=== PATIENT | female | born 1940 | race Caucasian/White ===

== ENCOUNTER 2017-07-15 00:14 | Inpatient (IN) | payer OTHER ==
[~2017-07-15] VITALS: Ht 170.2 cm; Wt 98.9 kg
[~2017-07-15 00:14] MED LIST: ASPIRIN81 MG PO; ATENOLOL25 MG PO; LOSARTAN POTASS25 M1; SIMVASTATIN10 M1
[2017-07-15 01:15] LABS: PLATELET COUNT 261 x10^3mcL (130-400); RED CELL DISTRIBUTION WIDTH 13.8 % (11.5-14.5)
[2017-07-15 01:16] LABS: BASOPHIL % 0 % (0-2)
[2017-07-15 01:45] LABS: CALCIUM 9.3 mg/dL (8.5-10.1); CARBON DIOXIDE 30.3 mmol/L (21-32); CHLORIDE SERUM 104 mmol/L (98-107); GLUCOSE SERUM 158 mg/dL (74-106); POTASSIUM SERUM 4.3 mmol/L (3.5-5.1); SODIUM SERUM 141 mmol/L (136-145)
[2017-07-15 01:49] LABS: ALBUMIN 3.8 g/dL (3.4-5.0); ALKALINE PHOSPHATASE 107 U/L (46-116); ALT/SGPT 19 U/L (14-59); AST/SGOT 18 U/L (15-37); BILIRUBIN TOTAL 0.74 mg/dL (0.20-1.00); LIPASE 66 IU/L (73-393); MAGNESIUM 1.9 mg/dL (1.8-2.4)
[2017-07-15 03:31] LABS: microscopic required? YES; urine erythrocyte NEGATIVE (NEGATIVE)
[2017-07-15] MEDS ORDERED: AMLODIPINE BESY10 M2 (04:29)
[2017-07-15 05:12] VITALS: BP 212/103
[2017-07-15 06:38] VITALS: BP 164/83
[2017-07-15 06:58] LABS: CHOLESTEROL/HDL RATIO 3.3; PHOSPHOROUS 3.4 mg/dL (2.5-4.9)
[2017-07-15 07:06] LABS: FREE T4 1.2 ng/dL (0.76-1.46); FREE THYROXINE INDEX 3.8 ug/dL (1.4-4.5); T4(THYROXINE) 11.2 ug/dL (4.7-13.3)
[2017-07-15 07:31] LABS: T3 TOTAL 1.27 ng/mL
[2017-07-15 09:18] VITALS: BP 151/68
[2017-07-15 12:39] LABS: RED CELL DISTRIBUTION WIDTH 14.2 % (11.5-14.5)
[2017-07-15 12:42] LABS: PLATELET COUNT 252 x10^3mcL (130-400)
[2017-07-15 12:43] VITALS: BP 137/60
[2017-07-15 13:52] LABS: MONOCYTE 4 % (0-7); SEGMENTED NEUTROPHILS 84 % (37-75)
[2017-07-15 13:53] LABS: BAND NEUTROPHIL 5 % (0-10); BASOPHIL 0 % (0-2)
[2017-07-15 13:54] LABS: PLATELET MORPHOLOGY LARGE PLATELET SEEN; rbc morphology (normal/abnorm) ABNORMAL (NORMAL); tear drop cell (dacryocyte) 1+
[2017-07-15 16:54] VITALS: BP 123/54
[2017-07-15 17:28] LABS: AMPHETAMINE QUAL UR NONE DETECTED (NEG <=1000)
[2017-07-15 21:29] VITALS: BP 122/47
[2017-07-16 05:29] VITALS: BP 122/53
[2017-07-16 06:11] LABS: BASOPHIL % 0.3 % (0-2); PLATELET COUNT 211 x10^3mcL (130-400); RED CELL DISTRIBUTION WIDTH 14.2 % (11.5-14.5)
[2017-07-16 06:55] LABS: CALCIUM 8.2 mg/dL (8.5-10.1); CARBON DIOXIDE 29.1 mmol/L (21-32); CHLORIDE SERUM 105 mmol/L (98-107); CREATININE SERUM 1.1 mg/dL (0.6-1.0); GLUCOSE SERUM 97 mg/dL (74-106); MAGNESIUM 2.1 mg/dL (1.8-2.4); PHOSPHOROUS 3.4 mg/dL (2.5-4.9); POTASSIUM SERUM 3.4 mmol/L (3.5-5.1); SODIUM SERUM 141 mmol/L (136-145)
[2017-07-16 08:54] VITALS: BP 142/66
[2017-07-16 12:43] VITALS: BP 116/47
[2017-07-16 16:46] VITALS: BP 140/56
[2017-07-16 21:25] VITALS: BP 115/65
[2017-07-17 05:37] VITALS: BP 156/64
[2017-07-17 06:22] LABS: BASOPHIL % 0.2 % (0-2); PLATELET COUNT 220 x10^3mcL (130-400); RED CELL DISTRIBUTION WIDTH 13.6 % (11.5-14.5)
[2017-07-17 06:43] LABS: CALCIUM 8.3 mg/dL (8.5-10.1); CARBON DIOXIDE 27.5 mmol/L (21-32); CHLORIDE SERUM 108 mmol/L (98-107); CREATININE SERUM 0.8 mg/dL (0.6-1.0); GLUCOSE SERUM 112 mg/dL (74-106); MAGNESIUM 1.8 mg/dL (1.8-2.4); PHOSPHOROUS 2.6 mg/dL (2.5-4.9); POTASSIUM SERUM 3.5 mmol/L (3.5-5.1); SODIUM SERUM 143 mmol/L (136-145)
[2017-07-17 09:26] VITALS: BP 107/48
[2017-07-17 13:39] VITALS: BP 133/65
== END 2017-07-17 15:51 | disposition home or self-care (01) | DRG 304 ==
LOC: ED 00:14 → DU 03:57
PROVIDERS: Emergency Medicine; ADMIT Family Medicine
DX: I16.0 Hypertensive urgency (principal); G93.41 Metabolic encephalopathy; I16.1 Hypertensive emergency; N39.0 Urinary tract infection, site not specified; K56.7 Ileus, unspecified; J98.11 Atelectasis; G90.9 Disorder of the autonomic nervous system, unspecified; K21.9 Gastro-esophageal reflux disease without esophagitis; E78.5 Hyperlipidemia, unspecified; Z88.0 Allergy status to penicillin; Z88.2 Allergy status to sulfonamides; Z79.899 Other long term (current) drug therapy; Z82.49 Family history of ischemic heart disease and other diseases of the circulatory system; Z80.9 Family history of malignant neoplasm, unspecified; Z87.891 Personal history of nicotine dependence
CPT/HCPCS: 83880; 84439; J0360; J0696; J1956; J2270; J2405; J2550; J2765; J3475; J3480; J3490; J7030; J7050; Q9966; Q9967

== ENCOUNTER 2017-07-23 08:29 | Emergency (ER) | payer OTHER ==
[~2017-07-23] VITALS: Ht 170.2 cm; Wt 97.1 kg
[~2017-07-23 08:29] MED LIST changes: +AMLODIPINE BESY10 M2
[2017-07-23 09:48] VITALS: BP 185/90
== END 2017-07-23 09:48 | disposition short-term general hospital (02) ==
LOC: ED 08:29
DX: I99.8 Other disorder of circulatory system (principal); I10 Essential (primary) hypertension; Z88.0 Allergy status to penicillin; Z88.2 Allergy status to sulfonamides
CPT/HCPCS: 82962

== ENCOUNTER 2017-08-15 07:59 | Emergency (ER) | payer OTHER ==
[~2017-08-15] VITALS: Ht 167.6 cm; Wt 92.1 kg
[2017-08-15 08:32] LABS: BASOPHIL % 0.4 % (0-2); PLATELET COUNT 253 x10^3mcL (130-400); RED CELL DISTRIBUTION WIDTH 14.1 % (11.5-14.5)
[2017-08-15 08:43] LABS: CARBON DIOXIDE 27.3 mmol/L (21-32); CHLORIDE SERUM 103 mmol/L (98-107); GLUCOSE SERUM 113 mg/dL (74-106); POTASSIUM SERUM 4.1 mmol/L (3.5-5.1); SODIUM SERUM 141 mmol/L (136-145)
[2017-08-15 08:49] LABS: ALBUMIN 3.5 g/dL (3.4-5.0); ALKALINE PHOSPHATASE 103 U/L (46-116); ALT/SGPT 19 U/L (14-59); AST/SGOT 16 U/L (15-37); BILIRUBIN TOTAL 1.1 mg/dL (0.20-1.00); LIPASE 60 IU/L (73-393); TOTAL PROTEIN, SERUM 7.5 g/dL (6.4-8.2)
[2017-08-15 10:54] VITALS: BP 171/81
== END 2017-08-15 11:02 | disposition home or self-care (01) ==
LOC: ED 07:59
PROVIDERS: Emergency Medicine
DX: K59.00 Constipation, unspecified (principal); I11.0 Hypertensive heart disease with heart failure; I50.9 Heart failure, unspecified; Z90.89 Acquired absence of other organs; Z88.0 Allergy status to penicillin; Z88.2 Allergy status to sulfonamides
CPT/HCPCS: J2405; J7030

== ENCOUNTER 2018-08-01 09:36 | Emergency (ER) | payer OTHER ==
[~2018-08-01] VITALS: Ht 170.2 cm; Wt 91.2 kg
[2018-08-01 09:40] VITALS: Ht 170.2 cm; Wt 91.2 kg
[2018-08-01 10:32] LABS: UA SPECIFIC GRAVITY 1.015 (1.005-1.035); microscopic required? YES; urine erythrocyte TRACE (NEGATIVE)
[2018-08-01 10:44] LABS: BASOPHIL % 0.5 % (0-2); PLATELET COUNT 210 x10^3mcL (130-400)
[2018-08-01 10:50] LABS: CALCIUM 8.6 mg/dL (8.5-10.1); CARBON DIOXIDE 26.3 mmol/L (21-32); CHLORIDE SERUM 106 mmol/L (98-107); CREATININE SERUM 0.9 mg/dL (0.6-1.0); GLUCOSE SERUM 119 mg/dL (74-106); POTASSIUM SERUM 3.3 mmol/L (3.5-5.1); SODIUM SERUM 140 mmol/L (136-145)
[2018-08-01 10:55] LABS: ALBUMIN 3.4 g/dL (3.4-5.0); ALKALINE PHOSPHATASE 114 U/L (46-116); ALT/SGPT 22 U/L (14-59); AST/SGOT 19 U/L (15-37); BILIRUBIN TOTAL 1.51 mg/dL (0.20-1.00); TOTAL PROTEIN, SERUM 7.2 g/dL (6.4-8.2)
[2018-08-01 13:15] VITALS: BP 196/84
== END 2018-08-01 13:05 | disposition home or self-care (01) ==
LOC: ED 09:36
PROVIDERS: Emergency Medicine
DX: N10 Acute pyelonephritis (principal); M54.5 Low back pain; I11.0 Hypertensive heart disease with heart failure; I50.9 Heart failure, unspecified; I63.9 Cerebral infarction, unspecified; Z88.0 Allergy status to penicillin; Z88.2 Allergy status to sulfonamides
CPT/HCPCS: J1885; J1956; J7030; Q0092